=== PATIENT | male | born 1940 | race Caucasian/White ===

== ENCOUNTER 2023-04-16 13:02 | Inpatient (IN) | payer MEDICARE, OTHER ==
[~2023-04-16] VITALS: Ht 152.4 cm; Wt 54.4 kg
[2023-04-16] MEDS ORDERED: METO25TA3 PO (14:47)
[2023-04-16] MEDS ORDERED: DIVA-76 PO (14:47)
[2023-04-16] MEDS ORDERED: ATOR10TA PO (14:47)
[2023-04-16] MEDS ORDERED: APIX5TAB PO (14:47)
[2023-04-16] MEDS ORDERED: MELA5TAB PO (14:47)
[2023-04-16] MEDS ORDERED: DONE5TAB7 PO (14:47)
[2023-04-16] MEDS ORDERED: METF-442 PO (14:47)
[2023-04-16] MEDS ORDERED: MAGN400O6 PO (14:47)
[2023-04-16] MEDS ORDERED: BISA10SU11 RC (14:47)
[2023-04-16] MEDS ORDERED: INSU100V7 SQ (14:47)
[2023-04-16] MEDS ORDERED: BENZ-13 PO (14:47)
[2023-04-16] MEDS ORDERED: SODI100037 PO (14:47)
[2023-04-16] MEDS ORDERED: AMLO5TAB4 PO (14:47)
[2023-04-16] MEDS ORDERED: DORZ10DR10 EACHEYE (14:47)
[2023-04-16] MEDS ORDERED: INSU100V28 SQ (14:47)
[2023-04-16] MEDS ORDERED: NA P133E RC (14:47)
[2023-04-16] MEDS ORDERED: CHOL100043 PO (14:47)
[2023-04-16] MEDS ORDERED: BRIM5DRO5 EACHEYE (14:47)
[2023-04-16] MEDS ORDERED: DOCU-141 PO (14:47)
[2023-04-16] MEDS ORDERED: CLOP75TA15 PO (14:47)
[2023-04-16] MEDS ORDERED: ACET-868 PO (14:47)
[2023-04-16] MEDS ORDERED: POLY17PO4 PO (14:47)
[2023-04-16 15:00] LABS: BASOPHILS % (AUTO) 0.5 % (0.0-2.0); EOSINOPHILS # (AUTO) 0.1 K/uL (0.0-0.7); HEMATOCRIT 37 % (39-51); HEMOGLOBIN 12.4 g/dL (13.5-17.5); LYMPHOCYTES # (AUTO) 2.2 K/uL (0.8-4.8); MEAN CORPUSCULAR HEMOGLOBIN 30 PG (26.0-33.0); MEAN CORPUSCULAR HGB CONC 33 g/dl (31.0-36.0); MEAN CORPUSCULAR VOLUME 89 fL (80-96); MONOCYTES # (AUTO) 0.6 K/uL (0.1-1.30); MONOCYTES % (AUTO) 8.3 % (2.0-12.0); NEUTROPHILS # (AUTO) 3.9 K/uL (1.8-8.9); NEUTROPHILS % (AUTO) 57.2 % (43.0-81.0); PLATELET COUNT (AUTO) 254 K/uL (150-450); RED CELL DISTRIBUTION WIDTH 14.8 % (11.5-15.0); WHITE BLOOD COUNT (AUTO) 6.8 K/uL (4.3-11.0)
[2023-04-16 15:15] LABS: ALBUMIN 2.9 g/dL (3.4-5.0); BILIRUBIN,TOTAL 0.2 mg/dL (0.2-1.0); CALCIUM, SERUM 9.4 mg/dL (8.5-10.1); CREATININE 0.8 mg/dL (0.6-1.3); POTASSIUM 3.9 mmol/L (3.5-5.1); TOTAL PROTEIN, SERUM 7.7 g/dL (6.4-8.2)
[2023-04-16] MEDS ORDERED: IV NS 0.9% 1,000 ML BAG IV ONE (16:00)
[2023-04-16 16:49] LABS: THYROID STIMULATING HORMONE 1.468 uIU/mL (0.358-3.74)
[2023-04-16 16:51] LABS: SERUM AMMONIA < 10 umol/L (11-32)
[2023-04-16] MEDS ORDERED: ONDANSETRON HCL/PF 4 MG/2 ML VIAL IVP PRN (18:00)
[2023-04-16] MEDS ORDERED: ACETAMINOPHEN 325 MG TABLET PO PRN (18:00)
[2023-04-16] MEDS ORDERED: MAG HYDROX/AL HYDROX/SIMETH 30 ML UDC PO PRN (18:00)
[2023-04-16] MEDS ORDERED: MAGNESIUM HYDROXIDE 30 ML UDC PO PRN (18:00)
[2023-04-16] MEDS ORDERED: Z GUARD REMEDY 4 OZ OINT TP PRN (18:00)
[2023-04-16] MEDS ORDERED: AZITHROMYCIN 500 MG in IV D5W 250 ML IV SCH (19:00)
[2023-04-16 19:06] VITALS: BP 139/68; TEMP 97.6; O2SAT 100
[2023-04-16] MEDS: IV 1/2NS 1000 ML 1,000 ML IV PRN (19:58)
[2023-04-16 20:00] VITALS: BP 115/92; TEMP 97.5; O2SAT 100
[2023-04-16] MEDS: ENOXAPARIN SODIUM 40 MG/0.4 ML DISP.SYRIN SQ SCH (22:08)
[2023-04-17] VITALS: BP 126/68; TEMP 97.2; O2SAT 100
[2023-04-17 04:00] VITALS: BP 128/78; TEMP 97.9; O2SAT 100
[2023-04-17 06:57] LABS: BASOPHILS % (AUTO) 0.5 % (0.0-2.0); EOSINOPHILS # (AUTO) 0.2 K/uL (0.0-0.7); EOSINOPHILS % (AUTO) 2.7 % (0.0-6.0); HEMATOCRIT 34 % (39-51); HEMOGLOBIN 11.7 g/dL (13.5-17.5); LYMPHOCYTES % (AUTO) 34.3 % (20.0-44.0); MEAN CORPUSCULAR HEMOGLOBIN 30 PG (26.0-33.0); MEAN CORPUSCULAR HGB CONC 34 g/dl (31.0-36.0); MEAN CORPUSCULAR VOLUME 88 fL (80-96); MONOCYTES # (AUTO) 0.6 K/uL (0.1-1.30); MONOCYTES % (AUTO) 10.7 % (2.0-12.0); NEUTROPHILS % (AUTO) 51.8 % (43.0-81.0); PLATELET COUNT (AUTO) 255 K/uL (150-450); RED BLOOD CELL COUNT(AUTO) 3.89 MIL/uL (4.5-6.0); RED CELL DISTRIBUTION WIDTH 14.8 % (11.5-15.0); WHITE BLOOD COUNT (AUTO) 5.8 K/uL (4.3-11.0)
[2023-04-17 07:32] LABS: ALBUMIN 2.7 g/dL (3.4-5.0); BILIRUBIN,TOTAL 0.3 mg/dL (0.2-1.0); CALCIUM, SERUM 8.9 mg/dL (8.5-10.1); CREATININE 0.6 mg/dL (0.6-1.3); MAGNESIUM 1.7 mg/dL (1.8-2.4); PHOSPHORUS 2.8 mg/dL (2.5-4.9); POTASSIUM 3.5 mmol/L (3.5-5.1); TOTAL PROTEIN, SERUM 7.2 g/dL (6.4-8.2)
[2023-04-17 08:00] VITALS: BP 133/69; TEMP 97.5; O2SAT 99
[2023-04-17] MEDS ORDERED: MAGNESIUM OXIDE 400 MG TABLET PO ONE (11:00)
[2023-04-17 12:00] VITALS: BP 124/62; TEMP 97.9; O2SAT 97
[2023-04-17 16:00] VITALS: BP 129/65; TEMP 98.2; O2SAT 98
[2023-04-17] MEDS: AZITHROMYCIN 250 MG TABLET PO SCH (17:12)
[2023-04-17] MEDS: IV 1/2NS 1000 ML 1,000 ML IV PRN (18:55)
[2023-04-17 20:00] VITALS: BP 128/74; TEMP 97.4; O2SAT 100
[2023-04-17] MEDS: ENOXAPARIN SODIUM 40 MG/0.4 ML DISP.SYRIN SQ SCH (21:29)
[2023-04-18] VITALS: BP 139/79; TEMP 97.2; O2SAT 100
[2023-04-18 04:00] VITALS: BP 129/68; TEMP 97.6; O2SAT 100
[2023-04-18 08:00] VITALS: BP 118/59; TEMP 96.1; O2SAT 100
[2023-04-18] MEDS: IV 1/2NS 1000 ML 1,000 ML IV PRN (09:55)
[2023-04-18 12:00] VITALS: BP 124/62; TEMP 97.2; O2SAT 100
[2023-04-18 16:00] VITALS: BP 147/68; TEMP 97.3; O2SAT 100
[2023-04-18] MEDS: AZITHROMYCIN 250 MG TABLET PO SCH (17:12)
[2023-04-18 20:00] VITALS: BP 150/76; TEMP 97.5; O2SAT 98
[2023-04-18] MEDS: ENOXAPARIN SODIUM 40 MG/0.4 ML DISP.SYRIN SQ SCH ×2 (20:50→21:00)
[2023-04-19] VITALS: BP 146/92; TEMP 97.6; O2SAT 97
[2023-04-19] MEDS: IV 1/2NS 1000 ML 1,000 ML IV PRN ×2 (02:22→17:08)
[2023-04-19 04:00] VITALS: BP 135/85; TEMP 98.2; O2SAT 98
[2023-04-19 08:00] VITALS: BP 152/84; TEMP 97.7; O2SAT 99
[2023-04-19 12:00] VITALS: BP 155/77; TEMP 96.5; O2SAT 99
[2023-04-19 16:00] VITALS: BP 147/82; TEMP 97.3; O2SAT 99
[2023-04-19] MEDS: AZITHROMYCIN 250 MG TABLET PO SCH (17:01)
[2023-04-19 21:02] VITALS: BP 142/79; TEMP 98.4; O2SAT 97
[2023-04-19] MEDS: ENOXAPARIN SODIUM 40 MG/0.4 ML DISP.SYRIN SQ SCH (21:18)
[2023-04-20 01:21] VITALS: BP 137/87; TEMP 97.9; O2SAT 99
[2023-04-20 04:30] VITALS: BP 122/79; TEMP 97.9; O2SAT 99
[2023-04-20] MEDS: IV 1/2NS 1000 ML 1,000 ML IV PRN (05:36)
[2023-04-20 08:00] VITALS: BP 148/80; TEMP 97.9; O2SAT 99
[2023-04-20 12:00] VITALS: BP 142/81; TEMP 97.8; O2SAT 99
== END 2023-04-20 14:25 | DRG 177 ==
LOC: ER 13:15 → TELE1 18:07
PROVIDERS: ADMIT Internal Medicine; ATTEND Internal Medicine
DX: U07.1 COVID-19 (principal); G93.41 Metabolic encephalopathy; E11.9 Type 2 diabetes mellitus without complications; F03.90 Unspecified dementia, unspecified severity, without behavioral disturbance, psychotic disturbance, mood disturbance, and anxiety; K90.9 Intestinal malabsorption, unspecified; E78.5 Hyperlipidemia, unspecified; H40.9 Unspecified glaucoma; R13.10 Dysphagia, unspecified; Z79.01 Long term (current) use of anticoagulants; Z79.4 Long term (current) use of insulin; Z79.84 Long term (current) use of oral hypoglycemic drugs; Z79.899 Other long term (current) drug therapy; Z20.822 Contact with and (suspected) exposure to COVID-19; I25.10 Atherosclerotic heart disease of native coronary artery without angina pectoris; R53.1 Weakness; E86.0 Dehydration; F09 Unspecified mental disorder due to known physiological condition; I11.9 Hypertensive heart disease without heart failure
CPT/HCPCS: 36415; 70450-TC; 71045-TC; 80053-TC; 82140-TC; 83735-TC; 84100-TC; 84443-TC; 85025-TC; 85378-TC; 86140-TC; A4223; G0378; J0456; J1650; J3490; J7030; J7050; J7060

== ENCOUNTER 2023-09-08 14:00 | Inpatient (IN) | payer MEDICARE, OTHER ==
[~2023-09-08] VITALS: Ht 165.1 cm; Wt 55.3 kg
[~2023-09-08 14:00] MED LIST: ACET-868 PO; AMLO5TAB4 PO; APIX5TAB PO; ATOR10TA PO; BENZ-13 PO; BISA10SU11 RC; BRIM5DRO5 EACHEYE; CHOL100043 PO; CLOP75TA15 PO; DIVA-76 PO; DOCU-141 PO; DONE5TAB7 PO; DORZ10DR10 EACHEYE; INSU100V28 SQ; INSU100V7 SQ; MAGN400O6 PO; MELA5TAB PO; METF-442 PO; METO25TA3 PO; NA P133E RC; POLY17PO4 PO; SODI100037 PO
[2023-09-08 14:51] LABS: EOSINOPHILS # (AUTO) 0.2 K/uL (0.0-0.7); EOSINOPHILS % (AUTO) 1.7 % (0.0-6.0); HEMATOCRIT 36 % (39-51); HEMOGLOBIN 12.7 g/dL (13.5-17.5); LYMPHOCYTES # (AUTO) 2.6 K/uL (0.8-4.8); LYMPHOCYTES % (AUTO) 28.1 % (20.0-44.0); MEAN CORPUSCULAR HEMOGLOBIN 30 PG (26.0-33.0); MEAN CORPUSCULAR HGB CONC 35 g/dl (31.0-36.0); MEAN CORPUSCULAR VOLUME 87 fL (80-96); MONOCYTES % (AUTO) 0.1 % (2.0-12.0); NEUTROPHILS # (AUTO) 6.6 K/uL (1.8-8.9); NEUTROPHILS % (AUTO) 70.1 % (43.0-81.0); PLATELET COUNT (AUTO) 404 K/uL (150-450); RED BLOOD CELL COUNT(AUTO) 4.21 MIL/uL (4.5-6.0); RED CELL DISTRIBUTION WIDTH 14.3 % (11.5-15.0); WHITE BLOOD COUNT (AUTO) 9.4 K/uL (4.3-11.0)
[2023-09-08 15:10] LABS: CALCIUM, SERUM 8.5 mg/dL (8.5-10.1); CARBON DIOXIDE 25 mmol/L (21-32); CHLORIDE 90 mmol/L (98-107); CREATININE 0.7 mg/dL (0.6-1.3); GLUCOSE 118 mg/dL (74-106); POTASSIUM 4.3 mmol/L (3.5-5.1); SODIUM SERUM 124 mmol/L (136-145); UREA NITROGEN, BLOOD 13 mg/dL (7-18)
[2023-09-08 15:17] LABS: ALANINE AMINOTRANSFERASE 18 U/L (12-78); ALBUMIN 2.9 g/dL (3.4-5.0); ALKALINE PHOSPHATASE 83 U/L (46-116); ASPARTATE AMINOTRANSFERASE 35 U/L (15-37); BILIRUBIN,DIRECT 0.1 mg/dL (0.0-0.2); BILIRUBIN,TOTAL 0.6 mg/dL (0.2-1.0); TOTAL PROTEIN, SERUM 7.6 g/dL (6.4-8.2)
[2023-09-08 16:12] LABS: APPEARANCE,URINE Clear (CLEAR); BILIRUBIN,URINE SMALL (NEGATIVE); BLOOD, URINE Small Ery/uL (NEGATIVE); COLOR,URINE YELLOW (YELLOW); KETONES,URINE 15 mg/dL (NEGATIVE); LEUKOCYTE ESTERASE ,URINE Negative (NEGATIVE); NITRITE, URINE Negative (NEGATIVE); PROTEIN,URINE 30 mg/dl (NEGATIVE); UGLUCOSE Negative (NEGATIVE)
[2023-09-08 16:15] LABS: ADD URINE CULTURE NO; BACTERIA,URINE None seen /HPF (None Seen); SQUAMOUS EPITHELIAL CELL,UR None Seen /HPF (None Seen); WBC,URINE 0-2 /HPF (0-3)
[2023-09-08] MEDS: IV NS 0.9% 1,000 ML BAG IV ONE (17:32)
[2023-09-08] MEDS ORDERED: MEGE400O4 PO (17:35)
[2023-09-08] MEDS ORDERED: MAG30ORA PO (17:35)
[2023-09-08] MEDS ORDERED: MULT-594 PO (17:35)
[2023-09-08] MEDS ORDERED: ONDANSETRON HCL/PF 4 MG/2 ML VIAL IVP PRN (19:00)
[2023-09-08] MEDS ORDERED: DEXTROSE 50%-WATER 50 ML DISP.SYRIN IV PRN (19:00)
[2023-09-08] MEDS ORDERED: ACETAMINOPHEN 325 MG TABLET PO PRN (19:00)
[2023-09-08] MEDS ORDERED: Z GUARD REMEDY 4 OZ OINT TP PRN (19:00)
[2023-09-08] MEDS: IV D5/0.45 NACL 1,000 ML IV PRN (19:43)
[2023-09-08 20:00] VITALS: BP 119/76; TEMP 98.1; O2SAT 100
[2023-09-08] MEDS: BLOOD SUGAR DIAGNOSTIC 1 EACH STRIP IN SCH (22:06)
[2023-09-08] MEDS: INSULIN REGULAR, HUMAN 100 UNIT/ML 3 ML VIAL SQ PRN (22:06)
[2023-09-09 07:15] LABS: BASOPHILS % (AUTO) 0.8 % (0.0-2.0); EOSINOPHILS # (AUTO) 0.1 K/uL (0.0-0.7); EOSINOPHILS % (AUTO) 2.3 % (0.0-6.0); HEMATOCRIT 29 % (39-51); HEMOGLOBIN 10.2 g/dL (13.5-17.5); LYMPHOCYTES # (AUTO) 1.6 K/uL (0.8-4.8); LYMPHOCYTES % (AUTO) 25.7 % (20.0-44.0); MEAN CORPUSCULAR HEMOGLOBIN 31 PG (26.0-33.0); MEAN CORPUSCULAR HGB CONC 35 g/dl (31.0-36.0); MEAN CORPUSCULAR VOLUME 88 fL (80-96); MONOCYTES # (AUTO) 0.7 K/uL (0.1-1.30); MONOCYTES % (AUTO) 10.8 % (2.0-12.0); NEUTROPHILS # (AUTO) 3.9 K/uL (1.8-8.9); NEUTROPHILS % (AUTO) 60.4 % (43.0-81.0); PLATELET COUNT (AUTO) 305 K/uL (150-450); RED BLOOD CELL COUNT(AUTO) 3.33 MIL/uL (4.5-6.0); RED CELL DISTRIBUTION WIDTH 14.5 % (11.5-15.0); WHITE BLOOD COUNT (AUTO) 6.4 K/uL (4.3-11.0)
[2023-09-09 07:30] VITALS: BP 133/69; TEMP 97.7; O2SAT 98
[2023-09-09] MEDS: PANTOPRAZOLE 40 MG TABLET.DR PO SCH (07:30)
[2023-09-09 08:31] LABS: THYROID STIMULATING HORMONE 1.128 uIU/mL (0.358-3.74)
[2023-09-09 10:52] LABS: CALCIUM, SERUM 8.6 mg/dL (8.5-10.1); CREATININE 0.6 mg/dL (0.6-1.3); PHOSPHORUS 2.3 mg/dL (2.5-4.9)
[2023-09-09 10:55] LABS: MAGNESIUM 1.1 mg/dL (1.8-2.4); POTASSIUM 2.7 mmol/L (3.5-5.1)
[2023-09-09] MEDS: IV NS 0.9% 1,000 ML IV PRN (11:12)
[2023-09-09] MEDS: Magnesium 1GM/D5W 100ML PREMIX 100 ML IV SCH (13:16)
[2023-09-09 16:00] VITALS: BP 138/73; TEMP 97.3; O2SAT 99
[2023-09-09] MEDS: K PHOS NEUTRAL 250 MG TABLET PO ONE (16:08)
[2023-09-09] MEDS: POTASSIUM CL. PREMIX PERIPHER. 50 ML IV SCH (16:20)
[2023-09-09 20:00] VITALS: BP 127/81; TEMP 98.1; O2SAT 97
[2023-09-10 06:52] LABS: BASOPHILS % (AUTO) 0.5 % (0.0-2.0); EOSINOPHILS # (AUTO) 0.1 K/uL (0.0-0.7); EOSINOPHILS % (AUTO) 1.7 % (0.0-6.0); HEMATOCRIT 36 % (39-51); HEMOGLOBIN 12.5 g/dL (13.5-17.5); LYMPHOCYTES # (AUTO) 1.7 K/uL (0.8-4.8); LYMPHOCYTES % (AUTO) 21.6 % (20.0-44.0); MEAN CORPUSCULAR HEMOGLOBIN 30 PG (26.0-33.0); MEAN CORPUSCULAR HGB CONC 35 g/dl (31.0-36.0); MEAN CORPUSCULAR VOLUME 87 fL (80-96); MONOCYTES # (AUTO) 0.8 K/uL (0.1-1.30); MONOCYTES % (AUTO) 10.4 % (2.0-12.0); NEUTROPHILS # (AUTO) 5.3 K/uL (1.8-8.9); NEUTROPHILS % (AUTO) 65.8 % (43.0-81.0); PLATELET COUNT (AUTO) 350 K/uL (150-450); RED BLOOD CELL COUNT(AUTO) 4.14 MIL/uL (4.5-6.0); RED CELL DISTRIBUTION WIDTH 14.1 % (11.5-15.0)
[2023-09-10 07:22] LABS: CALCIUM, SERUM 8.7 mg/dL (8.5-10.1); CARBON DIOXIDE 24 mmol/L (21-32); CHLORIDE 87 mmol/L (98-107); CREATININE 0.5 mg/dL (0.6-1.3); GLUCOSE 107 mg/dL (74-106); MAGNESIUM 1.7 mg/dL (1.8-2.4); PHOSPHORUS 2.2 mg/dL (2.5-4.9); POTASSIUM 3.3 mmol/L (3.5-5.1); UREA NITROGEN, BLOOD 4 mg/dL (7-18)
[2023-09-10 07:29] LABS: THYROID STIMULATING HORMONE 1.762 uIU/mL (0.358-3.74); URIC ACID 2.3 mg/dL (2.6-7.2)
[2023-09-10 07:30] VITALS: BP 134/86; TEMP 97.7; O2SAT 97
[2023-09-10 08:10] LABS: SODIUM SERUM 120 mmol/L (136-145)
[2023-09-10 09:05] LABS: URINE SODIUM, RANDOM 144 mmol/l (40-220)
[2023-09-10] MEDS ORDERED: POTASSIUM CHLORIDE 20 MEQ POWDER PACKET PO ONE (09:30)
[2023-09-10] MEDS: POTASSIUM CL. PREMIX PERIPHER. 50 ML IV SCH (09:36)
[2023-09-10] MEDS ORDERED: MAGNESIUM OXIDE 400 MG TABLET PO ONE (11:00)
[2023-09-10] MEDS: Magnesium 1GM/D5W 100ML PREMIX 100 ML IV SCH (11:16)
[2023-09-10] MEDS ORDERED: NEUTRA PHOS 1 POWD.PACKET PO ONE (15:30)
[2023-09-10 16:00] VITALS: BP 143/92; TEMP 97.5; O2SAT 98
[2023-09-10] MEDS: Sodium Phosphate 15 MMOL in IV NS 0.9% 245 ML IV SCH (16:09)
[2023-09-10 20:00] VITALS: BP 136/79; TEMP 97.6; O2SAT 94
[2023-09-11 07:30] VITALS: BP 130/76; TEMP 97.8; TEMP 97.9; O2SAT 98
[2023-09-11 07:47] LABS: BASOPHILS % (AUTO) 0.6 % (0.0-2.0); EOSINOPHILS # (AUTO) 0.1 K/uL (0.0-0.7); EOSINOPHILS % (AUTO) 1.6 % (0.0-6.0); HEMATOCRIT 37 % (39-51); HEMOGLOBIN 12.9 g/dL (13.5-17.5); LYMPHOCYTES # (AUTO) 1.6 K/uL (0.8-4.8); LYMPHOCYTES % (AUTO) 20.2 % (20.0-44.0); MEAN CORPUSCULAR HEMOGLOBIN 31 PG (26.0-33.0); MEAN CORPUSCULAR HGB CONC 35 g/dl (31.0-36.0); MEAN CORPUSCULAR VOLUME 88 fL (80-96); MONOCYTES # (AUTO) 0.8 K/uL (0.1-1.30); MONOCYTES % (AUTO) 10.2 % (2.0-12.0); NEUTROPHILS # (AUTO) 5.2 K/uL (1.8-8.9); NEUTROPHILS % (AUTO) 67.4 % (43.0-81.0); PLATELET COUNT (AUTO) 345 K/uL (150-450); RED BLOOD CELL COUNT(AUTO) 4.21 MIL/uL (4.5-6.0); RED CELL DISTRIBUTION WIDTH 14.4 % (11.5-15.0); WHITE BLOOD COUNT (AUTO) 7.7 K/uL (4.3-11.0)
[2023-09-11 08:01] LABS: CALCIUM, SERUM 8.6 mg/dL (8.5-10.1); CARBON DIOXIDE 21 mmol/L (21-32); CHLORIDE 90 mmol/L (98-107); CREATININE 0.5 mg/dL (0.6-1.3); GLUCOSE 89 mg/dL (74-106); MAGNESIUM 1.9 mg/dL (1.8-2.4); PHOSPHORUS 3.1 mg/dL (2.5-4.9); POTASSIUM 3.1 mmol/L (3.5-5.1); SODIUM SERUM 122 mmol/L (136-145); UREA NITROGEN, BLOOD 4 mg/dL (7-18)
[2023-09-11] MEDS: POTASSIUM CL. PREMIX PERIPHER. 50 ML IV SCH (09:36)
[2023-09-11 13:02] LABS: CALCIUM, SERUM 8.1 mg/dL (8.5-10.1); CREATININE 0.6 mg/dL (0.6-1.3); POTASSIUM 3.3 mmol/L (3.5-5.1)
[2023-09-11 15:53] LABS: OSMOLALITY,URINE 457 mOS/kg (340-1090)
[2023-09-11 16:00] VITALS: BP 129/91; TEMP 98.1; O2SAT 96
[2023-09-11 20:00] VITALS: BP 154/82; TEMP 98.4; O2SAT 97; O2SAT 98
[2023-09-12 06:57] LABS: BASOPHILS # (AUTO) 0.1 K/uL (0.0-0.2); BASOPHILS % (AUTO) 0.6 % (0.0-2.0); EOSINOPHILS # (AUTO) 0.1 K/uL (0.0-0.7); EOSINOPHILS % (AUTO) 1.1 % (0.0-6.0); HEMATOCRIT 35 % (39-51); HEMOGLOBIN 12.3 g/dL (13.5-17.5); LYMPHOCYTES # (AUTO) 1.9 K/uL (0.8-4.8); LYMPHOCYTES % (AUTO) 21.1 % (20.0-44.0); MEAN CORPUSCULAR HEMOGLOBIN 31 PG (26.0-33.0); MEAN CORPUSCULAR HGB CONC 35 g/dl (31.0-36.0); MEAN CORPUSCULAR VOLUME 87 fL (80-96); MONOCYTES # (AUTO) 0.9 K/uL (0.1-1.30); MONOCYTES % (AUTO) 9.4 % (2.0-12.0); NEUTROPHILS # (AUTO) 6.2 K/uL (1.8-8.9); NEUTROPHILS % (AUTO) 67.8 % (43.0-81.0); PLATELET COUNT (AUTO) 372 K/uL (150-450); RED BLOOD CELL COUNT(AUTO) 4.02 MIL/uL (4.5-6.0); RED CELL DISTRIBUTION WIDTH 14.3 % (11.5-15.0); WHITE BLOOD COUNT (AUTO) 9.2 K/uL (4.3-11.0)
[2023-09-12 08:00] VITALS: BP 136/80; TEMP 98.4; O2SAT 97
[2023-09-12 08:12] LABS: CALCIUM, SERUM 8.9 mg/dL (8.5-10.1); CREATININE 0.6 mg/dL (0.6-1.3); MAGNESIUM 1.6 mg/dL (1.8-2.4); PHOSPHORUS 2.6 mg/dL (2.5-4.9); POTASSIUM 3.4 mmol/L (3.5-5.1)
[2023-09-12] MEDS: IV Sodium Chloride 3% 500 ML 500 ML IV SCH (09:01)
[2023-09-12] MEDS: Magnesium 1GM/D5W 100ML PREMIX 100 ML IV SCH (09:52)
[2023-09-12] MEDS: POTASSIUM CL. PREMIX PERIPHER. 50 ML IV SCH (12:23)
[2023-09-12 13:43] LABS: CALCIUM, SERUM 8.6 mg/dL (8.5-10.1); CREATININE 0.6 mg/dL (0.6-1.3); POTASSIUM 3.3 mmol/L (3.5-5.1)
[2023-09-12 16:00] VITALS: BP 143/95; TEMP 98.2; O2SAT 97
[2023-09-12] MEDS ORDERED: ACETAMINOPHEN 650 MG/20.3 ML UDC GT PRN (16:00)
[2023-09-12 17:41] LABS: INR 1.31 (0.91-1.10); PROTHROMBIN TIME 13.6 SECS (9.2-11.1)
[2023-09-12 20:00] VITALS: BP 153/86; TEMP 98.7; O2SAT 95
[2023-09-13 06:30] LABS: BASOPHILS # (AUTO) 0.1 K/uL (0.0-0.2); BASOPHILS % (AUTO) 0.6 % (0.0-2.0); EOSINOPHILS # (AUTO) 0.1 K/uL (0.0-0.7); EOSINOPHILS % (AUTO) 0.6 % (0.0-6.0); HEMATOCRIT 39 % (39-51); HEMOGLOBIN 13.6 g/dL (13.5-17.5); LYMPHOCYTES # (AUTO) 1.5 K/uL (0.8-4.8); LYMPHOCYTES % (AUTO) 14.7 % (20.0-44.0); MEAN CORPUSCULAR HEMOGLOBIN 31 PG (26.0-33.0); MEAN CORPUSCULAR HGB CONC 35 g/dl (31.0-36.0); MEAN CORPUSCULAR VOLUME 87 fL (80-96); MONOCYTES # (AUTO) 0.8 K/uL (0.1-1.30); MONOCYTES % (AUTO) 8.2 % (2.0-12.0); NEUTROPHILS # (AUTO) 7.7 K/uL (1.8-8.9); NEUTROPHILS % (AUTO) 75.9 % (43.0-81.0); PLATELET COUNT (AUTO) 395 K/uL (150-450); RED BLOOD CELL COUNT(AUTO) 4.43 MIL/uL (4.5-6.0); RED CELL DISTRIBUTION WIDTH 14.6 % (11.5-15.0); WHITE BLOOD COUNT (AUTO) 10.1 K/uL (4.3-11.0)
[2023-09-13] MEDS ORDERED: GLUCERNA 1.2 1,000 ML BOTTLE NG PRN (07:30)
[2023-09-13 07:44] LABS: CALCIUM, SERUM 9.4 mg/dL (8.5-10.1); CREATININE 0.7 mg/dL (0.6-1.3); MAGNESIUM 1.9 mg/dL (1.8-2.4); PHOSPHORUS 2.8 mg/dL (2.5-4.9); POTASSIUM 3.4 mmol/L (3.5-5.1)
[2023-09-13 08:00] VITALS: BP 146/87; TEMP 98.1; O2SAT 98
[2023-09-13] MEDS: PANTOPRAZOLE 40 MG/PACK PACK GT SCH (08:21)
[2023-09-13] MEDS: POTASSIUM CHLORIDE 20 MEQ POWDER PACKET NG SCH (10:22)
[2023-09-13] MEDS: BLOOD SUGAR DIAGNOSTIC 1 EACH STRIP IN SCH (12:16)
[2023-09-13] MEDS: INSULIN REGULAR, HUMAN 100 UNIT/ML 3 ML VIAL SQ PRN (12:25)
[2023-09-13 16:00] VITALS: BP 134/95; TEMP 98.6; O2SAT 95
[2023-09-13 20:00] VITALS: BP 167/81; TEMP 98.7; O2SAT 95
[2023-09-13 20:20] VITALS: BP 167/81; TEMP 98.7; O2SAT 95
[2023-09-13] MEDS: APIXABAN 5 MG TABLET PO SCH (21:30)
[2023-09-13] MEDS ORDERED: PHARMACY TO CHANGE PO MEDS TO GT/NG XX PRN (22:00)
[2023-09-13] MEDS: DONEPEZIL 5 MG TABLET PO SCH (22:13)
[2023-09-13] MEDS: METFORMIN 500 MG TABLET PO SCH (22:13)
[2023-09-13] MEDS: SODIUM CHLORIDE 1000 MG TABLET PO SCH (22:13)
[2023-09-13] MEDS: ATORVASTATIN 10 MG TABLET PO SCH (22:13)
[2023-09-13] MEDS: DIVALPROEX SODIUM 250 MG TABLET.DR PO SCH (22:13)
[2023-09-13] MEDS: AMLODIPINE BESYLATE 5 MG TABLET PO SCH (22:14)
[2023-09-13] MEDS: DORZOLAMIDE OPTH 2% 10 ML BOTTLE EACHEYE SCH (22:30)
[2023-09-14 00:10] VITALS: BP 141/81; O2SAT 95
[2023-09-14 06:45] LABS: BASOPHILS # (AUTO) 0.1 K/uL (0.0-0.2); BASOPHILS % (AUTO) 0.6 % (0.0-2.0); EOSINOPHILS # (AUTO) 0.1 K/uL (0.0-0.7); EOSINOPHILS % (AUTO) 0.8 % (0.0-6.0); HEMATOCRIT 33 % (39-51); HEMOGLOBIN 11.8 g/dL (13.5-17.5); LYMPHOCYTES # (AUTO) 1.9 K/uL (0.8-4.8); LYMPHOCYTES % (AUTO) 15.6 % (20.0-44.0); MEAN CORPUSCULAR HEMOGLOBIN 31 PG (26.0-33.0); MEAN CORPUSCULAR HGB CONC 36 g/dl (31.0-36.0); MEAN CORPUSCULAR VOLUME 87 fL (80-96); MONOCYTES # (AUTO) 0.9 K/uL (0.1-1.30); NEUTROPHILS # (AUTO) 8.9 K/uL (1.8-8.9); PLATELET COUNT (AUTO) 391 K/uL (150-450); RED BLOOD CELL COUNT(AUTO) 3.82 MIL/uL (4.5-6.0); RED CELL DISTRIBUTION WIDTH 14.3 % (11.5-15.0); WHITE BLOOD COUNT (AUTO) 11.8 K/uL (4.3-11.0)
[2023-09-14 06:54] LABS: CALCIUM, SERUM 8.6 mg/dL (8.5-10.1); CREATININE 0.8 mg/dL (0.6-1.3); MAGNESIUM 1.4 mg/dL (1.8-2.4); PHOSPHORUS 2.8 mg/dL (2.5-4.9)
[2023-09-14 07:19] LABS: POTASSIUM 2.8 mmol/L (3.5-5.1)
[2023-09-14 07:30] VITALS: BP 134/83; TEMP 98.8; O2SAT 98
[2023-09-14] MEDS ORDERED: APIXABAN 5 MG TABLET PO SCH (08:20)
[2023-09-14] MEDS: POTASSIUM CL. PREMIX PERIPHER. 50 ML IV SCH (08:48)
[2023-09-14] MEDS: Magnesium 1GM/D5W 100ML PREMIX 100 ML IV SCH (08:48)
[2023-09-14] MEDS ORDERED: METOPROLOL SUCCINATE 25 MG TAB.SR.24H PO SCH (09:00)
[2023-09-14] MEDS: CLOPIDOGREL BISULFATE 75 MG TABLET GT SCH (09:00)
[2023-09-14] MEDS ORDERED: AMLODIPINE BESYLATE 5 MG TABLET GT SCH (09:00)
[2023-09-14] MEDS: APIXABAN 2.5 MG TABLET GT SCH (09:00)
[2023-09-14] MEDS: POLYETHYLENE GLYCOL 3350 17 GM POWD.PACK GT SCH (09:37)
[2023-09-14] MEDS: MULTIVIT W/MINERALS 1 TAB TABLET GT SCH (09:37)
[2023-09-14] MEDS: DOCUSATE SODIUM LIQ 100 MG/10 ML UDC GT SCH (09:37)
[2023-09-14] MEDS: DIVALPROEX SODIUM 125 MG CAP.SPRINK GT SCH (09:38)
[2023-09-14] MEDS: METOPROLOL TARTRATE 25 MG TABLET GT SCH (09:38)
[2023-09-14] MEDS: METFORMIN 500 MG TABLET GT SCH (09:39)
[2023-09-14] MEDS: SODIUM CHLORIDE 1000 MG TABLET GT SCH (09:39)
[2023-09-14] MEDS: CHOLECALCIFEROL (VITAMIN D 3) 400 UNIT TABLET GT SCH (09:40)
[2023-09-14] MEDS ORDERED: POTASSIUM CHLORIDE 20 MEQ POWDER PACKET NG SCH (10:00)
[2023-09-14] MEDS: GLUCERNA 1.2 1,000 ML BOTTLE NG SCH (12:41)
[2023-09-14] MEDS: IV Sodium Chloride 3% 500 ML 500 ML IV SCH (14:51)
[2023-09-14 16:00] VITALS: BP 143/84; TEMP 98.2; O2SAT 97
[2023-09-14 20:00] VITALS: BP 138/78; TEMP 98.4; O2SAT 98
[2023-09-14] MEDS: HEPARIN SODIUM, PORCINE 5000 UNITS/1 ML VIAL SQ SCH (21:00)
[2023-09-14] MEDS: DONEPEZIL 5 MG TABLET GT SCH (21:20)
[2023-09-14] MEDS: ATORVASTATIN 10 MG TABLET GT SCH (21:21)
[2023-09-15 06:59] LABS: BASOPHILS # (AUTO) 0.1 K/uL (0.0-0.2); BASOPHILS % (AUTO) 0.5 % (0.0-2.0); EOSINOPHILS # (AUTO) 0.1 K/uL (0.0-0.7); EOSINOPHILS % (AUTO) 0.9 % (0.0-6.0); HEMATOCRIT 31 % (39-51); HEMOGLOBIN 10.8 g/dL (13.5-17.5); LYMPHOCYTES % (AUTO) 17.3 % (20.0-44.0); MEAN CORPUSCULAR HEMOGLOBIN 31 PG (26.0-33.0); MEAN CORPUSCULAR HGB CONC 35 g/dl (31.0-36.0); MEAN CORPUSCULAR VOLUME 88 fL (80-96); NEUTROPHILS # (AUTO) 8.4 K/uL (1.8-8.9); NEUTROPHILS % (AUTO) 72.3 % (43.0-81.0); PLATELET COUNT (AUTO) 393 K/uL (150-450); RED BLOOD CELL COUNT(AUTO) 3.53 MIL/uL (4.5-6.0); RED CELL DISTRIBUTION WIDTH 14.9 % (11.5-15.0); WHITE BLOOD COUNT (AUTO) 11.6 K/uL (4.3-11.0)
[2023-09-15 07:04] LABS: CALCIUM, SERUM 8.4 mg/dL (8.5-10.1); CREATININE 0.8 mg/dL (0.6-1.3); MAGNESIUM 1.9 mg/dL (1.8-2.4); PHOSPHORUS 2.2 mg/dL (2.5-4.9); POTASSIUM 3.7 mmol/L (3.5-5.1)
[2023-09-15 07:30] VITALS: BP 145/86; TEMP 98.4; O2SAT 96
[2023-09-15] MEDS ORDERED: DEMECLOCYCLINE HCL 150 MG TABLET PO SCH (09:00)
[2023-09-15] MEDS: NEUTRA PHOS 1 POWD.PACKET PO ONE (15:30)
[2023-09-15 16:00] VITALS: BP 149/83; TEMP 98.6; O2SAT 97
[2023-09-15 19:49] VITALS: BP 153/96; TEMP 99; O2SAT 95
[2023-09-15 20:56] VITALS: BP 153/96; TEMP 99; O2SAT 95
[2023-09-16 06:50] LABS: BASOPHILS # (AUTO) 0.1 K/uL (0.0-0.2); BASOPHILS % (AUTO) 0.5 % (0.0-2.0); EOSINOPHILS # (AUTO) 0.1 K/uL (0.0-0.7); EOSINOPHILS % (AUTO) 0.7 % (0.0-6.0); HEMATOCRIT 31 % (39-51); HEMOGLOBIN 10.7 g/dL (13.5-17.5); LYMPHOCYTES # (AUTO) 1.6 K/uL (0.8-4.8); LYMPHOCYTES % (AUTO) 14.5 % (20.0-44.0); MEAN CORPUSCULAR HEMOGLOBIN 30 PG (26.0-33.0); MEAN CORPUSCULAR HGB CONC 35 g/dl (31.0-36.0); MEAN CORPUSCULAR VOLUME 87 fL (80-96); MONOCYTES # (AUTO) 0.8 K/uL (0.1-1.30); MONOCYTES % (AUTO) 7.1 % (2.0-12.0); NEUTROPHILS # (AUTO) 8.8 K/uL (1.8-8.9); NEUTROPHILS % (AUTO) 77.2 % (43.0-81.0); PLATELET COUNT (AUTO) 361 K/uL (150-450); RED BLOOD CELL COUNT(AUTO) 3.53 MIL/uL (4.5-6.0); RED CELL DISTRIBUTION WIDTH 14.8 % (11.5-15.0); WHITE BLOOD COUNT (AUTO) 11.3 K/uL (4.3-11.0)
[2023-09-16 07:00] VITALS: BP 134/77; TEMP 98.2; O2SAT 93
[2023-09-16 07:24] LABS: CALCIUM, SERUM 8.9 mg/dL (8.5-10.1); CREATININE 0.6 mg/dL (0.6-1.3)
[2023-09-16 07:28] LABS: POTASSIUM 2.8 mmol/L (3.5-5.1)
[2023-09-16] MEDS: POTASSIUM CL. PREMIX PERIPHER. 50 ML IV SCH (08:20)
[2023-09-16] MEDS: POTASSIUM CHLORIDE 20 MEQ POWDER PACKET GT ONE (10:37)
[2023-09-16 20:20] VITALS: BP 131/70; TEMP 99.5; O2SAT 99
[2023-09-17 06:48] LABS: BASOPHILS % (AUTO) 0.4 % (0.0-2.0); EOSINOPHILS # (AUTO) 0.1 K/uL (0.0-0.7); EOSINOPHILS % (AUTO) 1.2 % (0.0-6.0); HEMATOCRIT 30 % (39-51); HEMOGLOBIN 10.6 g/dL (13.5-17.5); LYMPHOCYTES # (AUTO) 1.9 K/uL (0.8-4.8); LYMPHOCYTES % (AUTO) 18.2 % (20.0-44.0); MEAN CORPUSCULAR HEMOGLOBIN 30 PG (26.0-33.0); MEAN CORPUSCULAR HGB CONC 35 g/dl (31.0-36.0); MEAN CORPUSCULAR VOLUME 87 fL (80-96); MONOCYTES % (AUTO) 9.4 % (2.0-12.0); NEUTROPHILS # (AUTO) 7.2 K/uL (1.8-8.9); NEUTROPHILS % (AUTO) 70.8 % (43.0-81.0); PLATELET COUNT (AUTO) 371 K/uL (150-450); RED BLOOD CELL COUNT(AUTO) 3.51 MIL/uL (4.5-6.0); RED CELL DISTRIBUTION WIDTH 14.7 % (11.5-15.0); WHITE BLOOD COUNT (AUTO) 10.2 K/uL (4.3-11.0)
[2023-09-17 07:16] LABS: CALCIUM, SERUM 8.7 mg/dL (8.5-10.1); CREATININE 0.7 mg/dL (0.6-1.3); MAGNESIUM 1.4 mg/dL (1.8-2.4)
[2023-09-17 08:00] VITALS: BP 131/81; TEMP 98.2; O2SAT 98
[2023-09-17] MEDS: Magnesium 1GM/D5W 100ML PREMIX 100 ML IV SCH (09:36)
[2023-09-17] MEDS ORDERED: ANESTHESIA TRAY IN PYXIS 1 EA TRAY MC ONE (15:54)
[2023-09-17 16:00] VITALS: BP 121/79; TEMP 98.3; O2SAT 96
[2023-09-17 20:33] VITALS: BP 144/80; TEMP 97.9; O2SAT 96
[2023-09-18 05:17] VITALS: O2SAT 97
[2023-09-18] MEDS: GLUCERNA 1.2 1,000 ML BOTTLE PEG SCH (06:31)
[2023-09-18 08:16] LABS: CALCIUM, SERUM 8.9 mg/dL (8.5-10.1); CREATININE 0.6 mg/dL (0.6-1.3)
[2023-09-18 08:44] VITALS: BP 116/71
== END 2023-09-18 14:50 | DRG 640 ==
LOC: ER 14:10 → MED 17:28
PROVIDERS: ADMIT Nurse Practitioner Family; ATTEND Nurse Practitioner Acute Care
PROC: 0DH63UZ Insertion of Feeding Device into Stomach, Percutaneous Approach (ICD-10-PCS; principal; 2023-09-17)
DX: R62.7 Adult failure to thrive (principal); G93.41 Metabolic encephalopathy; E44.0 Moderate protein-calorie malnutrition; D68.69 Other thrombophilia; E22.2 Syndrome of inappropriate secretion of antidiuretic hormone; E86.0 Dehydration; I48.91 Unspecified atrial fibrillation; R13.10 Dysphagia, unspecified; Z79.4 Long term (current) use of insulin; Z87.891 Personal history of nicotine dependence; Z79.01 Long term (current) use of anticoagulants; M19.90 Unspecified osteoarthritis, unspecified site; E86.1 Hypovolemia; E88.09 Other disorders of plasma-protein metabolism, not elsewhere classified; E11.9 Type 2 diabetes mellitus without complications; Z20.822 Contact with and (suspected) exposure to COVID-19; E78.5 Hyperlipidemia, unspecified; I10 Essential (primary) hypertension; D64.9 Anemia, unspecified; F01.50 Vascular dementia, unspecified severity, without behavioral disturbance, psychotic disturbance, mood disturbance, and anxiety; E87.6 Hypokalemia; Z68.20 Body mass index [BMI] 20.0-20.9, adult; K29.70 Gastritis, unspecified, without bleeding; Z79.84 Long term (current) use of oral hypoglycemic drugs; Z79.02 Long term (current) use of antithrombotics/antiplatelets; Z74.09 Other reduced mobility
CPT/HCPCS: 31720; 36415; 43246; 71045-TC; 74230-TC; 80048-TC; 80076-TC; 81001; 82962-TC; 83735-TC; 83935-TC; 84100-TC; 84300-TC; 84443-TC; 84550-TC; 85025-TC; 85610-TC; 86850-TC; 87081-TC; 92526; 92611-TC; 94760-TC; 94799-TC; A4223; A9563; G0378; J1644; J1815; J2704; J3475; J3480; J3490; J7030; J7050